=== PATIENT | female | born 1975 | race Caucasian/White ===

== ENCOUNTER 2021-01-07 14:32 | Emergency (ER) | payer BC, SELFPAY ==
[2021-01-07 14:40] VITALS: BP 133/80; PULSE 92; RESP 14; TEMP 36.7; O2SAT 100
--- NOTE | 2021-01-07 15:12 | ED.URI ---
HPI - URI/Sore Throat General Chief Complaint: Upper Respiratory Infection Stated Complaint: sinus infection Source: patient Mode of arrival: ambulatory Limitations: no limitations History of Present Illness HPI Narrative: Patient is a 45-year-old female who presents complaining of sinus pain, congestion, rhinorrhea, sore throat and intermittent cough x3 to 4 weeks. Patient reports negative Covid test on Tuesday. She reports Covid vaccine x1. Second vaccine due approximately 01/17. She reports taking [id number] medications with limited relief. MD elicited complaint: nasal congestion and sinus pain Related Data Home Medications Medication Instructions Recorded Confirmed levonorgestrel [Mirena] 1 insert INTRAUTERINE ONCE 01/07/21 01/07/21 Allergies Allergy/AdvReac Type Severity Reaction Status Date / Time No Known Allergies Allergy Verified 01/07/21 14:52 Review of Systems Review of Systems: CONSTITUTIONAL: Denies fever, chills, or sweats. EYES: Denies visual changes, redness, or discharge. ENT: Reports rhinorrhea, congestion, and sore throat. CARDIOVASCULAR: Denies chest pain, palpitations, or edema. RESPIRATORY: Denies cough or dyspnea. GASTROINTESTINAL: Denies abdominal pain, nausea, vomiting, or diarrhea. GENITOURINARY: Denies dysuria or hematuria. SKIN: Denies rash or itching. MUSCULOSKELETAL: Denies back pain, joint pain, or myalgia. NEUROLOGIC: Denies headache, numbness, dizziness, or weakness. PSYCHIATRIC: Denies anxiety or depression. PMFSH Past Medical History Medical History Shingles Surgical History Surgical History History of appendectomy Family History Family History (Updated 01/07/21 @ 15:15 by MICHEL Siddiqui) Other No significant family history Social History Social History (Updated 01/07/21 @ 15:15 by MICHEL Siddiqui) Smoking status: Current some day smoker Alcohol intake: current Alcohol use details: occasional Substance use: never Living arrangements: with family Occupation/Education: occupation Exam Narrative: GENERAL: Well-appearing, well-nourished, and in no acute distress. HEAD: Normocephalic, atraumatic. EYES: EOMI. No redness or drainage. Conjunctiva are normal. ENT: Mucous membranes pink and moist. Nares clear. No rhinorrhea. Throat moderate erythema and edema noted. Uvula midline. Tenderness with palpation to frontal and maxillary sinuses NECK: AROM. Supple. No lymphadenopathy. CHEST: No respiratory distress. HEART: Regular rate and rhythm. EXTREMITIES: Normal range of motion. No edema. SKIN: Warm, dry, no rash. NEURO: No focal deficits. Alert and oriented x3. Gait steady. PSYCH: Normal affect. No signs of depression or anxiety. Course Vital Signs Vital signs: Vital Signs Temperature 36.7 C 01/07/21 14:40 Pulse Rate 92 01/07/21 14:40 Respiratory Rate 14 01/07/21 14:40 Blood Pressure 133/80 01/07/21 14:40 Pulse Oximetry 100 01/07/21 14:40 Temperature 36.7 C 01/07/21 14:40 Pulse Rate 92 01/07/21 14:40 Respiratory Rate 14 01/07/21 14:40 Blood Pressure 133/80 01/07/21 14:40 Pulse Oximetry 100 01/07/21 14:40 Reviewed female. MDM - URI/Sore Throat MDM Narrative Medical decision making narrative: Patient has maxillary and frontal sinus tenderness with palpation. Patient most likely has sinusitis. Patient to be treated with antibiotics at this time. Discussed plan of care. Patient stable for discharge home with outpatient follow-up as discussed. Differential Diagnosis Differential diagnosis: Likely upper respiratory infection, sinusitis, viral infection, influenza and pharyngitis Critical Care Time Critical Care Time Critical Care Time: No Discharge Plan Discharge Clinical Impression: Sinusitis Patient Disposition: Home, Self-Care Condition: Stable In
== END 2021-01-07 15:23 | disposition home or self-care (01) ==
PROVIDERS: Emergency Provider Nurse Practitioner
DX: J32.9 Chronic sinusitis, unspecified (principal); F17.200 Nicotine dependence, unspecified, uncomplicated
CPT/HCPCS: 99213; G0463

== ENCOUNTER 2021-04-06 15:27 | Emergency (ER) | payer BC, SELFPAY ==
--- NOTE | ~2021-04-06 | XR_ITS ---
EXAMINATION: [id number] INDICATION: Left-sided rib pain TECHNIQUE: A frontal view of the chest and 3 views of the left ribs were obtained. COMPARISON: 02/18/2018 FINDINGS: The lungs are free of acute opacities. There is no pleural effusion or pneumothorax. The ca rdiomediastinal silhouette is normal. The visualized bones and soft tissues are unremarkable. No disp laced rib fracture is identified. IMPRESSION: 1. No acute cardiopulmonary abnormality or evidence of displaced rib fracture. Reviewed, dictated and finalized at location A. [employer] TECHNOLOGIST
[2021-04-06 15:38] VITALS: BP 147/85; PULSE 86; RESP 14; TEMP 36.6; O2SAT 100
--- NOTE | 2021-04-06 16:04 | ECG_ITS ---
Measurements Intervals [place] Rate: 76 P: 44 NV: 135 QRS: 41 QRSD: 87 T: 56 QT: 390 QTc: 441 Interpretive Statements SINUS RHYTHM NORMAL ECG Electronically Signed On 04-06-2021 16:50:03 STOCK CONTROL CLERK by Myron Cintron D.O.
--- NOTE | 2021-04-06 16:04 | ED.GENADULT ---
HPI - General Adult General Chief complaint: Chest Pain Stated complaint: pain around upper left ribs Time Seen by Provider: 04/06/21 15:28 Source: patient Mode of arrival: ambulatory Limitations: no limitations History of Present Illness HPI narrative: Mrs Loza is a pleasant 45 y/o female. PMHx None pertinent. Presents to [facility] today with acute complaints of Left lower chest wall/rib pain for the past 48 hours. Client describes the pain as 'sharp', and worse when she bends over, coughs, or laughs.Pt describes the pain as sharp and intermittent, non-radiating. No chest wall trauma. No chest pain, palpitations, or difficulty breathing. She does reports to have been engaging in increased physical activity, without heavy lifting or falls. No additional acute c/o illness upon PE. Related Data Home Medications Medication Instructions Recorded Confirmed levonorgestrel [Mirena] 1 insert INTRAUTERINE ONCE 01/07/21 04/06/21 Allergies Allergy/AdvReac Type Severity Reaction Status Date / Time No Known Allergies Allergy Verified 04/06/21 15:49 Review of Systems Review of Systems: CONSTITUTIONAL: Denies fever, chills, sweats. EYES: Denies visual changes, redness, discharge. ENT: Denies rhinorrhea, congestion, sore throat, otalgia. CARDIOVASCULAR: Denies chest pain, palpitations, edema. RESPIRATORY: Denies dyspnea, wheezing, cough GASTROINTESTINAL: Denies abdominal pain, nausea, vomiting, diarrhea. GENITOURINARY: Denies dysuria, hematuria, abnormal discharge SKIN: Denies rash or itching. MUSCULOSKELETAL: Denies acute back pain, joint pain, or myalgia. LT lower chest wall/rib pain. NEUROLOGIC: Denies numbness, or focal weakness. PSYCHIATRIC: Denies anxiety or depression. All systems reviewed & are unremarkable except as noted in HPI and below PMFSH Past Medical History Medical History Shingles Surgical History Surgical History History of appendectomy Family History Family History Other No significant family history Social History Social History Smoking status: Current some day smoker Alcohol intake: current Alcohol use details: occasional Substance use: never Exam Narrative: GENERAL: This is a well-nourished, well-developed adult, in no apparent distress. HEAD: normocephalic, atraumatic. EYES: PERRL. Sclera clear/white. EARS: External ears normal, auditory canals clear and without drainage, TMs normal. NOSE: External nose normal. No Rhinorrhea, no obstruction, nares patent. THROAT: Mucous membranes moist, posterior pharynx clear. No exudates. NECK: Neck supple, non-tender without lymphadenopathy, masses or thyromegaly. CARDIOVASCULAR: Regular rate and rhythm without murmurs, gallops, or rubs. With reproducible chest tenderness located to LT lower intercostal space 7-10. No crepitus, no chest wall deformity. Chest wall rises symetrically. RESPIRATORY: Clear to auscultation. Breath sounds equal bilaterally. No wheezes, rales, or rhonchi. GASTROINTESTINAL: Abdomen soft, non-tender, nondistended. Bowel sounds are active. No guarding. SKIN: warm, intact with no suspicious lesions or rash, good texture and turgor. NEURO: Alert, active, and age appropriate. No focal neurologic deficits. Course Vital Signs Vital signs: Vital Signs Temperature 36.6 C 04/06/21 15:38 Pulse Rate 86 04/06/21 15:38 Respiratory Rate 14 04/06/21 15:38 Blood Pressure 147/85 H 04/06/21 15:38 Pulse Oximetry 100 04/06/21 15:38 Temperature 36.6 C 04/06/21 15:38 Pulse Rate 86 04/06/21 15:38 Respiratory Rate 14 04/06/21 15:38 Blood Pressure 147/85 H 04/06/21 15:38 Pulse Oximetry 100 04/06/21 15:38 The patient has been informed that they
== END 2021-04-06 16:51 | disposition home or self-care (01) ==
PROVIDERS: Emergency Provider Nurse Practitioner Adult Health
DX: M94.0 Chondrocostal junction syndrome [Tietze] (principal); F17.200 Nicotine dependence, unspecified, uncomplicated
CPT/HCPCS: 71101; 93005; 99213; G0463

== ENCOUNTER 2022-06-15 01:22 | Day surgery (SDC) | payer BC, SELFPAY ==
[2022-06-01 14:37] VITALS: BMI 27.7
[2022-06-15 08:32] VITALS: BP 119/83; PULSE 79; RESP 18; TEMP 36.1; O2SAT 100; BMI 27.4
[2022-06-15] MEDS: LACTATED RINGERS 1,000 ML 150 ML IV CONT (08:56)
--- NOTE | 2022-06-15 09:03 | WPDANESEPPF ---
Anes - Initial Pre Proc Eval Procedure: Operation Date: 06/15/22 09:45 Proposed Procedures p Screening Colonoscopy - Alvaro Lorenzo MD s [facility] Hemorrhoid Treatment - Alvaro Lorenzo MD Date/Time: 06/15/22 09:03 Surgeon: Alvaro Lorenzo MD Pre Op Diagnosis: hemorrhoids, neoplasm screening Patient Data Age: 46 Gender: F Height: 1.68 m Weight: 77.2 kg Last Vital Signs Temp 36.1 C L 06/15/22 08:32 Pulse 79 06/15/22 08:32 Resp 18 06/15/22 08:32 BP 119/83 06/15/22 08:32 Pulse Ox 100 06/15/22 08:32 O2 Del Method Room Air 06/15/22 08:32 Allergies Allergy/AdvReac Type Severity Reaction Status Date / Time No Known Allergies Allergy Verified 06/15/22 08:40 Home Medications Medication Instructions Recorded Confirmed Type citalopram 20 mg tablet 20 mg PO DAILY 05/20/22 06/15/22 History hydrocortisone acetate 25 mg 25 mg RECTAL BID 10 days #20 ea 05/20/22 06/15/22 Rx rectal suppository (Anusol-HC) melatonin 10 mg capsule 10 mg PO QHS 05/20/22 06/15/22 History Laboratory Tests 06/15/22 09:00 Beta HCG, Quant Pending Patient hx anesthesia problems: none Family hx anesthesia problems: none Results Review: All pre-operative results and documents have been reviewed as part of the pre-operative evaluation. [facility] Past Medical History Medical History Colon cancer screening Obesity Rectal pain Shingles Surgical History Surgical History History of appendectomy Family History Family History Other No significant family history Social History Social History Smoking packs per day: 0.75 Smoking cigarettes per day: 15.0 Years smoked: 15 Smoking pack-years: 11.25 Smoking status: Former smoker Alcohol intake: current Alcohol use details: socially Substance use: never Substance use type: does not use Living arrangements: with family Occupation/Education: occupation Spiritual care concerns: No Anes - Eval Final PreProcedure Day of Procedure 06/15/22 09:03 Patient weight: overweight Heart: regular rate and rhythm Lungs: clear to auscultation Airway: Mallampati scale class II Neurological: alert and oriented Last oral intake: >/= 8 hours Emergent: no Anesthetic plan: proceed Anesthesia type and monitoring: general GIVS and standard monitoring Results Review: All pre-operative results and documents have been reviewed as part of the pre-operative evaluation. Informed Consent: The patient's anesthetic plan and its attendant risks and benefits were discussed with the patient/family/POA. Questions were solicited and answers provided to the satisfaction of the patient/family/POA.
[2022-06-15 09:31] LABS: Beta HCG Quantitative < 2.39 mIU/ML
--- NOTE | 2022-06-15 10:01 | WPDHPUPDATE1 ---
History and Physical Update Update Date/Time: 06/15/22 10:01 History and Physical has been reviewed, including an updated exam of the patient. There are NO changes in the patient's condition. Risks, benefits, and alternatives have been discussed and questions answered. Patient agrees to proceed with procedure.
[2022-06-15 10:20] VITALS: BP 103/67; PULSE 80; RESP 24; O2SAT 100
--- NOTE | 2022-06-15 10:21 | W.PM.PROC2 ---
Procedure Note - Detailed Date of Procedure 06/15/22 Pre-op Diagnosis hemorrhoids Post-op Diagnosis Same Procedure Performed IRC of internal hemorrhoids Surgeon Alvaro Lorenzo MD Anesthesia MAC Description of Procedure found grade II internal hemorrhoids using anoscopy, no anal fissure, no lesions. Then introduced IRC probe and hemorrhoids treated 1.5 seconds x5
[2022-06-15 10:30] VITALS: BP 107/71; PULSE 73; RESP 21; O2SAT 100
[2022-06-15 10:40] VITALS: BP 102/63; PULSE 71; RESP 22; O2SAT 100
== END 2022-06-15 10:52 | disposition home or self-care (01) ==
PROVIDERS: Anesthesiology; PCP Family Medicine Sports Medicine; Visit Provider Internal Medicine Gastroenterology
PROC: 0DJD8ZZ Inspection of Lower Intestinal Tract, Via Natural or Artificial Opening Endoscopic (ICD-10-PCS; CPT 45378; principal; 2022-06-15 09:45)
PROC: (CPT 46930; 2022-06-15 09:45)
DX: Z12.11 Encounter for screening for malignant neoplasm of colon (principal); K64.1 Second degree hemorrhoids; D12.0 Benign neoplasm of cecum; K62.1 Rectal polyp; K64.4 Residual hemorrhoidal skin tags; Z87.891 Personal history of nicotine dependence
CPT/HCPCS: 46930; 45380; 45385; 36415; 84702; 88305; J2704; J7120